=== PATIENT | male | born 1935 | race Two or more races ===

== ENCOUNTER 2019-07-22 00:16 | Inpatient (IN) | payer SELFPAY ==
[2019-07-22] VITALS (62 sets, daily range): BP systolic 83–150; BP diastolic 43–79
[~2019-07-22] VITALS: Ht 165.1 cm; Wt 68.0 kg
[2019-07-22] MEDS ORDERED: GENTAMICIN 80MG PREMIX 100 ML IV ONE (01:00)
[2019-07-22] MEDS ORDERED: SODIUM CHLORIDE 0.9% 1000ML BAG (SEPSIS BOLUS) IV ONE (01:00)
[2019-07-22] MEDS ORDERED: PIPERACILLIN/TAZ 3.375G PREMIX 50 ML IV ONE (01:00)
[2019-07-22] MEDS: VANCOMYCIN 1 G PREMIX 200 ML IV ONE ×2 (01:12→01:42)
[2019-07-22] MEDS ORDERED: ACETAMINOPHEN 325MG TABLET PO ONE (01:15)
[2019-07-22] MEDS ORDERED: IBUPROFEN 600MG TABLET PO ONE (01:15)
[2019-07-22 01:20] LABS: CHLORIDE 100 mEq/L (98-107)
[2019-07-22 01:23] LABS: HEMATOCRIT. 44.7 % (42.0-52.0); HEMOGLOBIN. 14.4 g/dL (14.0-18.0); MEAN CORPUSCULAR VOLUME 86.8 fL (80.0-94.0); MEAN PLATELET VOLUME 8.4 fl (7.4-10.4); PLATELET 308 x1000/uL (130-400); RED BLOOD CELL COUNT 5.15 mill/uL (4.7-6.1); RED CELL DISTRIBUTION WIDTH 17.3 % (11.6-14.6)
[2019-07-22 01:24] LABS: INR 1.1; PROTHROMBIN TIME 11.3 sec (9.6-11.0)
[2019-07-22 01:51] LABS: CLARITY URINE TURBID (CLEAR); COLOR URINE YELLOW (YELLOW); KETONES URINE NEGATIVE (NEGATIVE); LEUKOCYTE ESTERASE URINE 3+ (NEGATIVE); NITRITE URINE NEGATIVE (NEGATIVE); OCCULT BLOOD URINE 2+ (NEGATIVE); PH URINE 5.5 (4.5-8.0); PROTEIN URINE 1+ (NEGATIVE); SPECIFIC GRAVITY URINE 1.015 (1.005-1.030); UROBILINOGEN URINE 0.2 E.U./dL (0.2-1.0)
[2019-07-22] MEDS ORDERED: NOREPINEPHRINE 4 MG in DEXT 5% WATER 246 ML IV ONE (04:15)
[2019-07-22] MEDS ORDERED: NOREPINEPHRINE 4MG/250ML PMX 250 ML IV SCH (04:30)
[2019-07-22] MEDS ORDERED: SODIUM CHLORIDE 0.9% 500 ML IV ONE (04:59)
[2019-07-22 06:00] LABS: PLATELET ESTIMATE NORMAL
[2019-07-22] MEDS: SODIUM CHLORIDE 0.9% 1,000 ML IV SCH ×2 (08:47→20:12)
[2019-07-22] MEDS ORDERED: DOCUSATE SODIUM 100MG CAPSULE PO PRN (09:00)
[2019-07-22] MEDS ORDERED: IPRATROPIUM/ALBUTEROL 0.5-3(2.5)MG/3ML NEB NEB PRN (09:00)
[2019-07-22] MEDS ORDERED: ACETAMINOPHEN 325MG TABLET PO PRN (09:00)
[2019-07-22] MEDS ORDERED: LORAZEPAM 0.5MG TABLET PO PRN (09:00)
[2019-07-22] MEDS ORDERED: MORPHINE SULFATE 4 MG/ML CPJ (NOT FOR IM USE) IV PRN (09:00)
[2019-07-22] MEDS ORDERED: ZOLPIDEM TARTRATE 5MG TABLET PO PRN (09:00)
[2019-07-22] MEDS ORDERED: NOREPINEPHRINE 4 MG in DEXT 5% WATER 246 ML IV PRN (09:00)
[2019-07-22] MEDS ORDERED: TRAMADOL 50MG TABLET PO PRN (09:00)
[2019-07-22] MEDS ORDERED: NITROGLYCERIN 0.4MG TABLET SL SL PRN (09:00)
[2019-07-22] MEDS ORDERED: MAGNESIUM/ALUMINUM HYDROXIDE/SIMETHICONE 30ML UDC PO PRN (09:00)
[2019-07-22] MEDS ORDERED: ONDANSETRON HCL 4MG/2ML INJ IV PRN (09:00)
[2019-07-22] MEDS: ASCORBIC ACID 500 MG TABLET PO SCH ×2 (10:13→20:12)
[2019-07-22] MEDS: ZINC SULFATE 220 MG ( 50 ) CAPSULE PO SCH (10:13)
[2019-07-22] MEDS: ENOXAPARIN 30MG/0.3ML SYR SUBCUT SCH (10:14)
[2019-07-22] MEDS: FAMOTIDINE 20MG TABLET PO SCH (10:14)
[2019-07-22] MEDS: GUAIFENESIN 200MG/10ML SUGAR FREE UDC PO PRN (10:17)
[2019-07-22] MEDS: MEROPENEM 1,000 MG in SODIUM CHLORIDE 0.9% 100 ML IV SCH ×2 (11:59→22:12)
[2019-07-22] MEDS ORDERED: VANCOMYCIN 500 MG PREMIX 100 ML IV NR (12:00)
[2019-07-22 13:56] LABS: *AMPHETAMINES SCREEN URINE NEGATIVE (NEGATIVE); *BARBITURATES SCREEN URINE NEGATIVE (NEGATIVE); *BENZODIAZEPINES SCREEN URINE NEGATIVE (NEGATIVE); *COCAINE SCREEN URINE NEGATIVE (NEGATIVE); CANNABINOID URINE SCREEN NEGATIVE (NEGATIVE); METHADONE URINE SCREEN NEGATIVE (NEGATIVE)
[2019-07-22 13:57] LABS: OPIATES URINE SCREEN NEGATIVE (NEGATIVE); PHENCYCLIDINE URINE SCREEN NEGATIVE (NEGATIVE)
[2019-07-22 16:56] LABS: CREATINE KINASE MB FRACTION 8.8 ng/mL (0.5-3.6)
[2019-07-22] MEDS ORDERED: SODI88SP18 BOTHNSTRLS (19:23)
[2019-07-22] MEDS ORDERED: LOSA50TA41 PO (19:23)
[2019-07-22] MEDS ORDERED: FERR236T3 MT (19:23)
[2019-07-22] MEDS ORDERED: HYDR25TA MT (19:23)
[2019-07-22] MEDS: IPRATROPIUM/ALBUTEROL 0.5-3(2.5)MG/3ML NEB HHN SCH (20:22)
[2019-07-22 23:45] LABS: CREATINE KINASE MB FRACTION 6.9 ng/mL (0.5-3.6)
[2019-07-23] VITALS (40 sets, daily range): BP systolic 94–136; BP diastolic 49–81
[2019-07-23] MEDS: IPRATROPIUM/ALBUTEROL 0.5-3(2.5)MG/3ML NEB HHN SCH ×4 (02:18→21:32)
[2019-07-23] MEDS: SODIUM CHLORIDE 0.9% 1,000 ML IV SCH ×2 (03:58→16:45)
[2019-07-23 05:42] LABS: HEMATOCRIT. 33.6 % (42.0-52.0); HEMOGLOBIN. 10.8 g/dL (14.0-18.0); MEAN CORPUSCULAR HEMOGLOBIN 28.1 pg (28.0-32.0); MEAN CORPUSCULAR VOLUME 87.6 fL (80.0-94.0); MEAN PLATELET VOLUME 8.8 fl (7.4-10.4); PLATELET 200 x1000/uL (130-400); RED BLOOD CELL COUNT 3.83 mill/uL (4.7-6.1)
[2019-07-23 05:50] LABS: CHLORIDE 113 mEq/L (98-107)
[2019-07-23 06:00] LABS: PHOSPHORUS 2.3 mg/dL (2.5-4.9)
[2019-07-23 06:01] LABS: LDL CHOLESTEROL 79 mg/dL (5-100)
[2019-07-23 06:03] LABS: HDL CHOLESTEROL 37 mg/dL (40-59)
[2019-07-23] MEDS: ASCORBIC ACID 500 MG TABLET PO SCH ×2 (09:00→22:44)
[2019-07-23] MEDS: ZINC SULFATE 220 MG ( 50 ) CAPSULE PO SCH (09:00)
[2019-07-23] MEDS: ENOXAPARIN 30MG/0.3ML SYR SUBCUT SCH (09:00)
[2019-07-23] MEDS: FAMOTIDINE 20MG TABLET PO SCH (09:00)
[2019-07-23 09:37] LABS: PLATELET ESTIMATE NORMAL
[2019-07-23] MEDS ORDERED: MAGNESIUM 1 G PREMIX 100 ML IV NR ×2 (09:45→21:30)
[2019-07-23] MEDS ORDERED: VANCOMYCIN 1250MG in DEXTROSE 5% WATER 250ML IV SCH (10:00)
[2019-07-23 10:43] LABS: VITAMIN B12 SERUM 1778 pg/mL (211-911)
[2019-07-23 10:52] LABS: FOLIC ACID (FOLATE) SERUM > 20.00 ng/mL (>5.38)
[2019-07-23] MEDS ORDERED: POTASSIUM PHOS,M-BASIC-D-BASIC 15 MMOL in DEXT 5% WATER 245 ML IV ONE (11:00)
[2019-07-23] MEDS: MEROPENEM 1,000 MG in SODIUM CHLORIDE 0.9% 100 ML IV SCH (12:01)
[2019-07-23] MEDS ORDERED: PNEUMOCOCCAL VACCINE IM ONE (14:15)
[2019-07-23 16:43] LABS: TOTAL IRON BINDING CAPACITY 152 ug/dL (250-450)
[2019-07-24] VITALS: BP_SYST 123; BP_SYST 136; BP_DIAS 74; BP_DIAS 83
[2019-07-24] MEDS: SODIUM CHLORIDE 0.9% 1,000 ML IV SCH ×2 (00:47→10:47)
[2019-07-24] MEDS: MEROPENEM 1,000 MG in SODIUM CHLORIDE 0.9% 100 ML IV SCH ×3 (02:14→22:12)
[2019-07-24 04:00] VITALS: BP 136/83
[2019-07-24] MEDS: IPRATROPIUM/ALBUTEROL 0.5-3(2.5)MG/3ML NEB HHN SCH ×3 (07:33→22:23)
[2019-07-24 07:57] LABS: BASOPHILS % 0.6 % (0.0-2.0); EOSINOPHILS % 2.1 % (0.0-5.0); HEMATOCRIT. 31.6 % (42.0-52.0); HEMOGLOBIN. 10.6 g/dL (14.0-18.0); MEAN CORPUSCULAR HEMOGLOBIN 28.5 pg (28.0-32.0); MEAN CORPUSCULAR VOLUME 85.4 fL (80.0-94.0); MEAN PLATELET VOLUME 8.3 fl (7.4-10.4); MONOCYTES % 9.5 % (2.0-8.0); NEUTROPHILS % 76.8 % (40.0-76.0); PLATELET 204 x1000/uL (130-400)
[2019-07-24 08:00] VITALS: BP 136/80
[2019-07-24] MEDS: FAMOTIDINE 20MG TABLET PO SCH (08:44)
[2019-07-24] MEDS: ENOXAPARIN 40MG/0.4ML SYR SUBCUT SCH (08:44)
[2019-07-24] MEDS: ASCORBIC ACID 500 MG TABLET PO SCH ×2 (08:44→22:12)
[2019-07-24 08:47] LABS: CHLORIDE 110 mEq/L (98-107)
[2019-07-24 08:55] LABS: PHOSPHORUS 1.9 mg/dL (2.5-4.9)
[2019-07-24] MEDS ORDERED: VANCOMYCIN 1,250 MG in DEXT 5% WATER 250 ML IV SCH (09:00)
[2019-07-24] MEDS: ZINC SULFATE 220 MG ( 50 ) CAPSULE PO SCH (09:00)
[2019-07-24 12:00] VITALS: BP 135/87
[2019-07-24] MEDS ORDERED: VANCOMYCIN 1250MG in DEXTROSE 5% WATER 250ML IV SCH (14:00)
[2019-07-24] MEDS ORDERED: MORPHINE SULFATE 2 MG/ML CPJ (NOT FOR IM USE) IV PRN (15:31)
[2019-07-24 16:00] VITALS: BP 131/82
[2019-07-24 20:00] VITALS: BP 142/85
[2019-07-25] VITALS: BP 120/69
[2019-07-25] MEDS: IPRATROPIUM/ALBUTEROL 0.5-3(2.5)MG/3ML NEB HHN SCH ×3 (02:11→14:32)
[2019-07-25 04:00] VITALS: BP 129/71
[2019-07-25] MEDS: SODIUM CHLORIDE 0.9% 1,000 ML IV SCH ×2 (05:14→16:47)
[2019-07-25 08:00] VITALS: BP 140/82
[2019-07-25] MEDS: FAMOTIDINE 20MG TABLET PO SCH (08:25)
[2019-07-25] MEDS: ENOXAPARIN 40MG/0.4ML SYR SUBCUT SCH (08:25)
[2019-07-25] MEDS: ASCORBIC ACID 500 MG TABLET PO SCH ×2 (08:25→21:08)
[2019-07-25] MEDS: ZINC SULFATE 220 MG ( 50 ) CAPSULE PO SCH (08:26)
[2019-07-25] MEDS: MEROPENEM 1,000 MG in SODIUM CHLORIDE 0.9% 100 ML IV SCH (10:31)
[2019-07-25 12:00] VITALS: BP 120/80
[2019-07-25 16:00] VITALS: BP 134/76
[2019-07-25] MEDS: AMIKACIN 500MG in SODIUM CHLORIDE 0.9% 100ML IV SCH (18:25)
[2019-07-25 20:00] VITALS: BP 116/83
[2019-07-26] VITALS: BP 143/93
[2019-07-26] MEDS: SODIUM CHLORIDE 0.9% 1,000 ML IV SCH ×3 (03:49→23:02)
[2019-07-26 04:00] VITALS: BP 150/96
[2019-07-26] MEDS: CLONIDINE 0.1MG TABLET PO PRN (04:02)
[2019-07-26] MEDS: AMIKACIN 500MG in SODIUM CHLORIDE 0.9% 100ML IV SCH ×2 (05:35→18:19)
[2019-07-26 08:00] VITALS: BP 135/80
[2019-07-26] MEDS: ASCORBIC ACID 500 MG TABLET PO SCH ×2 (09:18→20:51)
[2019-07-26] MEDS: ZINC SULFATE 220 MG ( 50 ) CAPSULE PO SCH (09:18)
[2019-07-26] MEDS: FAMOTIDINE 20MG TABLET PO SCH (09:18)
[2019-07-26] MEDS: ENOXAPARIN 40MG/0.4ML SYR SUBCUT SCH (09:19)
[2019-07-26 12:00] VITALS: BP 130/80
[2019-07-26 16:00] VITALS: BP 127/78
[2019-07-26 20:00] VITALS: BP 156/90
[2019-07-26] MEDS: GUAIFENESIN 200MG/10ML SUGAR FREE UDC PO PRN (20:51)
[2019-07-26] MEDS: IPRATROPIUM/ALBUTEROL 0.5-3(2.5)MG/3ML NEB HHN SCH (22:00)
[2019-07-27] VITALS: BP 145/89
[2019-07-27 04:00] VITALS: BP 140/83
[2019-07-27] MEDS: AMIKACIN 500MG in SODIUM CHLORIDE 0.9% 100ML IV SCH (05:40)
[2019-07-27 07:31] LABS: BASOPHILS % 0.7 % (0.0-2.0); EOSINOPHILS % 2.3 % (0.0-5.0); HEMATOCRIT. 35.5 % (42.0-52.0); HEMOGLOBIN. 11.7 g/dL (14.0-18.0); LYMPHOCYTES % 15.2 % (20.0-50.0); MEAN CORPUSCULAR HEMOGLOBIN 28.5 pg (28.0-32.0); MEAN CORPUSCULAR VOLUME 86.3 fL (80.0-94.0); MEAN PLATELET VOLUME 8.2 fl (7.4-10.4); MONOCYTES % 8.5 % (2.0-8.0); NEUTROPHILS % 73.3 % (40.0-76.0); PLATELET 238 x1000/uL (130-400); RED BLOOD CELL COUNT 4.11 mill/uL (4.7-6.1); RED CELL DISTRIBUTION WIDTH 16.7 % (11.6-14.6)
[2019-07-27 08:00] VITALS: BP 155/92
[2019-07-27 08:07] LABS: CHLORIDE 106 mEq/L (98-107)
[2019-07-27] MEDS: SODIUM CHLORIDE 0.9% 1,000 ML IV SCH (08:55)
[2019-07-27] MEDS: IPRATROPIUM/ALBUTEROL 0.5-3(2.5)MG/3ML NEB HHN SCH ×3 (09:05→21:03)
[2019-07-27] MEDS: FAMOTIDINE 20MG TABLET PO SCH (09:52)
[2019-07-27] MEDS: ZINC SULFATE 220 MG ( 50 ) CAPSULE PO SCH (09:52)
[2019-07-27] MEDS: ASCORBIC ACID 500 MG TABLET PO SCH ×2 (09:52→20:19)
[2019-07-27] MEDS: ENOXAPARIN 40MG/0.4ML SYR SUBCUT SCH (09:55)
[2019-07-27 12:00] VITALS: BP 134/82
[2019-07-27 16:00] VITALS: BP 134/80
[2019-07-27 20:00] VITALS: BP 138/86
[2019-07-27] MEDS: AMIKACIN SULFATE 400 MG in SODIUM CHLORIDE 0.9% 100 ML IV SCH (23:09)
[2019-07-28] VITALS: BP 140/82
[2019-07-28 04:00] VITALS: BP 139/84
[2019-07-28] MEDS: SODIUM CHLORIDE 0.9% 1,000 ML IV SCH ×2 (04:50→15:29)
[2019-07-28 08:00] VITALS: BP 139/89
[2019-07-28] MEDS: ZINC SULFATE 220 MG ( 50 ) CAPSULE PO SCH (09:42)
[2019-07-28] MEDS: FAMOTIDINE 20MG TABLET PO SCH (09:42)
[2019-07-28] MEDS: ASCORBIC ACID 500 MG TABLET PO SCH ×2 (09:42→21:52)
[2019-07-28] MEDS: ENOXAPARIN 40MG/0.4ML SYR SUBCUT SCH (09:42)
[2019-07-28] MEDS: AMIKACIN SULFATE 400 MG in SODIUM CHLORIDE 0.9% 100 ML IV SCH ×2 (11:59→22:00)
[2019-07-28 12:00] VITALS: BP 129/86
[2019-07-28 16:00] VITALS: BP 133/81
[2019-07-28 20:00] VITALS: BP 142/83
[2019-07-28] MEDS: IPRATROPIUM/ALBUTEROL 0.5-3(2.5)MG/3ML NEB HHN SCH (20:28)
[2019-07-29] VITALS: BP 142/78
[2019-07-29] MEDS: SODIUM CHLORIDE 0.9% 1,000 ML IV SCH ×2 (00:47→18:36)
[2019-07-29 04:00] VITALS: BP 143/85
[2019-07-29 07:12] LABS: CHLORIDE 107 mEq/L (98-107)
[2019-07-29 07:30] VITALS: BP 136/85
[2019-07-29] MEDS: ZINC SULFATE 220 MG ( 50 ) CAPSULE PO SCH (08:55)
[2019-07-29] MEDS: FAMOTIDINE 20MG TABLET PO SCH (08:55)
[2019-07-29] MEDS: ASCORBIC ACID 500 MG TABLET PO SCH ×2 (08:55→22:11)
[2019-07-29] MEDS: ENOXAPARIN 40MG/0.4ML SYR SUBCUT SCH (08:55)
[2019-07-29] MEDS: IPRATROPIUM/ALBUTEROL 0.5-3(2.5)MG/3ML NEB HHN SCH ×3 (09:14→19:52)
[2019-07-29] MEDS: AMIKACIN SULFATE 400 MG in SODIUM CHLORIDE 0.9% 100 ML IV SCH ×2 (10:18→22:10)
[2019-07-29 12:30] VITALS: BP 121/70
[2019-07-29 17:30] VITALS: BP 131/76
[2019-07-29 20:00] VITALS: BP 141/81
[2019-07-30] VITALS: BP 149/79
[2019-07-30 04:00] VITALS: BP 137/80
[2019-07-30] MEDS: SODIUM CHLORIDE 0.9% 1,000 ML IV SCH (06:47)
[2019-07-30] MEDS: IPRATROPIUM/ALBUTEROL 0.5-3(2.5)MG/3ML NEB HHN SCH ×4 (07:28→21:34)
[2019-07-30 08:00] VITALS: BP 131/89
[2019-07-30] MEDS: ZINC SULFATE 220 MG ( 50 ) CAPSULE PO SCH (08:20)
[2019-07-30] MEDS: ASCORBIC ACID 500 MG TABLET PO SCH ×2 (08:20→21:12)
[2019-07-30] MEDS: FAMOTIDINE 20MG TABLET PO SCH (08:20)
[2019-07-30] MEDS: ENOXAPARIN 40MG/0.4ML SYR SUBCUT SCH (08:21)
[2019-07-30] MEDS: AMIKACIN SULFATE 400 MG in SODIUM CHLORIDE 0.9% 100 ML IV SCH (11:15)
[2019-07-30 12:00] VITALS: BP 129/73
[2019-07-30] MEDS: NYSTATIN POWDER 15GM TOP SCH (15:24)
[2019-07-30 16:00] VITALS: BP 111/65
[2019-07-30 20:00] VITALS: BP 123/68
[2019-07-31] VITALS: BP 134/68
[2019-07-31] MEDS: SODIUM CHLORIDE 0.9% 1,000 ML IV SCH ×2 (01:00→22:05)
[2019-07-31 04:00] VITALS: BP 134/68
[2019-07-31] MEDS: AMIKACIN SULFATE 400 MG in SODIUM CHLORIDE 0.9% 100 ML IV SCH ×3 (04:45→22:11)
[2019-07-31] MEDS: IPRATROPIUM/ALBUTEROL 0.5-3(2.5)MG/3ML NEB HHN SCH ×6 (07:50→19:50)
[2019-07-31 08:00] VITALS: BP 153/91
[2019-07-31] MEDS: NYSTATIN POWDER 15GM TOP SCH ×4 (09:00→17:40)
[2019-07-31] MEDS: ENOXAPARIN 40MG/0.4ML SYR SUBCUT SCH (09:01)
[2019-07-31] MEDS: ZINC SULFATE 220 MG ( 50 ) CAPSULE PO SCH (09:01)
[2019-07-31] MEDS: FAMOTIDINE 20MG TABLET PO SCH (09:02)
[2019-07-31] MEDS: ASCORBIC ACID 500 MG TABLET PO SCH ×2 (09:02→22:04)
[2019-07-31 12:00] VITALS: BP 132/84
[2019-07-31 16:00] VITALS: BP 124/64
[2019-07-31 20:00] VITALS: BP 128/66
[2019-08-01] VITALS: BP 132/68
[2019-08-01 04:00] VITALS: BP 142/80
[2019-08-01] MEDS: IPRATROPIUM/ALBUTEROL 0.5-3(2.5)MG/3ML NEB HHN SCH ×2 (07:52→14:39)
[2019-08-01 07:59] VITALS: BP 143/86
[2019-08-01] MEDS: SODIUM CHLORIDE 0.9% 1,000 ML IV SCH ×2 (08:22→17:14)
[2019-08-01] MEDS: ASCORBIC ACID 500 MG TABLET PO SCH ×2 (08:22→21:28)
[2019-08-01] MEDS: ZINC SULFATE 220 MG ( 50 ) CAPSULE PO SCH (08:22)
[2019-08-01] MEDS: ENOXAPARIN 40MG/0.4ML SYR SUBCUT SCH (08:23)
[2019-08-01] MEDS: NYSTATIN POWDER 15GM TOP SCH ×3 (08:23→17:14)
[2019-08-01] MEDS: FAMOTIDINE 20MG TABLET PO SCH (08:23)
[2019-08-01] MEDS: AMIKACIN SULFATE 400 MG in SODIUM CHLORIDE 0.9% 100 ML IV SCH ×2 (11:01→23:59)
[2019-08-01 12:13] VITALS: BP 138/83
[2019-08-01 17:04] VITALS: BP 130/80
[2019-08-01 20:00] VITALS: BP 157/90
[2019-08-02] VITALS: BP 160/84
[2019-08-02] MEDS: CLONIDINE 0.1MG TABLET PO PRN (00:14)
[2019-08-02 04:00] VITALS: BP 140/84
[2019-08-02 07:56] LABS: BASOPHILS % 0.6 % (0.0-2.0); EOSINOPHILS % 1.6 % (0.0-5.0); HEMATOCRIT. 32.8 % (42.0-52.0); HEMOGLOBIN. 10.8 g/dL (14.0-18.0); LYMPHOCYTES % 10.6 % (20.0-50.0); MEAN CORPUSCULAR VOLUME 85.4 fL (80.0-94.0); MEAN PLATELET VOLUME 7.9 fl (7.4-10.4); MONOCYTES % 4.5 % (2.0-8.0); NEUTROPHILS % 82.7 % (40.0-76.0); PLATELET 272 x1000/uL (130-400); RED BLOOD CELL COUNT 3.84 mill/uL (4.7-6.1); RED CELL DISTRIBUTION WIDTH 16.3 % (11.6-14.6)
[2019-08-02 08:00] VITALS: BP 142/89
[2019-08-02] MEDS: NYSTATIN POWDER 15GM TOP SCH ×2 (08:25→12:00)
[2019-08-02] MEDS: FAMOTIDINE 20MG TABLET PO SCH (08:26)
[2019-08-02] MEDS: ZINC SULFATE 220 MG ( 50 ) CAPSULE PO SCH (08:26)
[2019-08-02] MEDS: ASCORBIC ACID 500 MG TABLET PO SCH ×2 (08:26→21:25)
[2019-08-02] MEDS: ENOXAPARIN 40MG/0.4ML SYR SUBCUT SCH (08:26)
[2019-08-02 09:29] LABS: CHLORIDE 107 mEq/L (98-107)
[2019-08-02] MEDS: IPRATROPIUM/ALBUTEROL 0.5-3(2.5)MG/3ML NEB HHN SCH (10:00)
[2019-08-02] MEDS: AMIKACIN SULFATE 400 MG in SODIUM CHLORIDE 0.9% 100 ML IV SCH ×2 (11:56→23:47)
[2019-08-02 12:00] VITALS: BP 118/69
[2019-08-02] MEDS: SODIUM CHLORIDE 0.9% 1,000 ML IV SCH (15:33)
[2019-08-02 16:00] VITALS: BP 108/63
[2019-08-02 20:00] VITALS: BP 112/74
[2019-08-03] VITALS: BP 146/87
[2019-08-03] MEDS: SODIUM CHLORIDE 0.9% 1,000 ML IV SCH ×2 (03:04→23:02)
[2019-08-03 04:00] VITALS: BP 132/71
[2019-08-03 07:01] LABS: CHLORIDE 107 mEq/L (98-107)
[2019-08-03] MEDS: FAMOTIDINE 20MG TABLET PO SCH (08:36)
[2019-08-03] MEDS: ZINC SULFATE 220 MG ( 50 ) CAPSULE PO SCH (08:36)
[2019-08-03] MEDS: ASCORBIC ACID 500 MG TABLET PO SCH ×2 (08:36→23:02)
[2019-08-03] MEDS: ENOXAPARIN 40MG/0.4ML SYR SUBCUT SCH (09:25)
[2019-08-03] MEDS: AMIKACIN SULFATE 400 MG in SODIUM CHLORIDE 0.9% 100 ML IV SCH (16:50)
[2019-08-03 20:00] VITALS: BP 130/79
[2019-08-03] MEDS: IPRATROPIUM/ALBUTEROL 0.5-3(2.5)MG/3ML NEB HHN SCH (21:30)
[2019-08-04] VITALS: BP 121/66
[2019-08-04] MEDS: IPRATROPIUM/ALBUTEROL 0.5-3(2.5)MG/3ML NEB HHN SCH ×4 (02:22→20:01)
[2019-08-04] MEDS: AMIKACIN SULFATE 400 MG in SODIUM CHLORIDE 0.9% 100 ML IV SCH ×3 (03:22→23:31)
[2019-08-04 04:00] VITALS: BP 147/77
[2019-08-04 08:00] VITALS: BP 163/91
[2019-08-04] MEDS: ASCORBIC ACID 500 MG TABLET PO SCH ×2 (08:40→20:01)
[2019-08-04] MEDS: CLONIDINE 0.1MG TABLET PO PRN (08:40)
[2019-08-04] MEDS: FAMOTIDINE 20MG TABLET PO SCH ×2 (08:40→20:01)
[2019-08-04] MEDS: ENOXAPARIN 40MG/0.4ML SYR SUBCUT SCH (08:41)
[2019-08-04 12:00] VITALS: BP 122/68
[2019-08-04] MEDS: ZINC SULFATE 220 MG ( 50 ) CAPSULE PO SCH (13:20)
[2019-08-04 16:00] VITALS: BP 113/64
[2019-08-04] MEDS: SODIUM CHLORIDE 0.9% 1,000 ML IV SCH (17:22)
[2019-08-04 20:00] VITALS: BP 115/73
[2019-08-05] VITALS: BP 119/67
[2019-08-05 04:00] VITALS: BP 148/89
[2019-08-05] MEDS: SODIUM CHLORIDE 0.9% 1,000 ML IV SCH ×3 (04:55→21:45)
[2019-08-05 08:00] VITALS: BP 149/93
[2019-08-05] MEDS: FAMOTIDINE 20MG TABLET PO SCH ×2 (08:57→21:45)
[2019-08-05] MEDS: ASCORBIC ACID 500 MG TABLET PO SCH ×2 (08:57→21:45)
[2019-08-05] MEDS: ZINC SULFATE 220 MG ( 50 ) CAPSULE PO SCH (08:57)
[2019-08-05] MEDS: ENOXAPARIN 40MG/0.4ML SYR SUBCUT SCH (08:58)
[2019-08-05] MEDS: AMIKACIN SULFATE 400 MG in SODIUM CHLORIDE 0.9% 100 ML IV SCH (11:47)
[2019-08-05 12:00] VITALS: BP 141/80
[2019-08-05] MEDS: IPRATROPIUM/ALBUTEROL 0.5-3(2.5)MG/3ML NEB HHN SCH ×2 (15:30→20:27)
[2019-08-05 16:00] VITALS: BP 142/82
[2019-08-05 20:00] VITALS: BP 135/75
[2019-08-06] VITALS: BP 152/91
[2019-08-06] MEDS: AMIKACIN SULFATE 400 MG in SODIUM CHLORIDE 0.9% 100 ML IV SCH ×2 (00:26→11:02)
[2019-08-06 04:00] VITALS: BP 146/90
[2019-08-06 07:21] LABS: CHLORIDE 109 mEq/L (98-107)
[2019-08-06] MEDS: IPRATROPIUM/ALBUTEROL 0.5-3(2.5)MG/3ML NEB HHN SCH (07:54)
[2019-08-06 08:00] VITALS: BP 161/93
[2019-08-06] MEDS: ENOXAPARIN 40MG/0.4ML SYR SUBCUT SCH (08:26)
[2019-08-06] MEDS: ZINC SULFATE 220 MG ( 50 ) CAPSULE PO SCH (08:26)
[2019-08-06] MEDS: ASCORBIC ACID 500 MG TABLET PO SCH (08:26)
[2019-08-06] MEDS: SODIUM CHLORIDE 0.9% 1,000 ML IV SCH (08:52)
[2019-08-06] MEDS: FAMOTIDINE 20MG TABLET PO SCH (09:00)
[2019-08-06 11:42] VITALS: BP 161/93
[2019-08-06 12:00] VITALS: BP 138/90
== END 2019-08-06 14:54 | disposition home or self-care (01) | DRG 720 ==
LOC: ER 00:16 → MICUSO 03:30 → EDBEDREQ 03:32 → EDBEDREQTM 03:32 → EDBEDREQSVC 03:32 → ENRESERV 07:16 → 6EST 07-23 12:15
PROVIDERS: ADMIT Internal Medicine; ATTEND Internal Medicine
PROC: 02HV33Z Insertion of Infusion Device into Superior Vena Cava, Percutaneous Approach (ICD-10-PCS; principal; 2019-07-31)
PROC: B5181ZA Fluoroscopy of Superior Vena Cava using Low Osmolar Contrast, Guidance (ICD-10-PCS; 2019-07-31)
PROC: B548ZZA Ultrasonography of Superior Vena Cava, Guidance (ICD-10-PCS; 2019-07-31)
DX: A41.51 Sepsis due to Escherichia coli [E. coli] (principal); N17.0 Acute kidney failure with tubular necrosis; R65.21 Severe sepsis with septic shock; E44.0 Moderate protein-calorie malnutrition; G92 Toxic encephalopathy; E87.0 Hyperosmolality and hypernatremia; N39.0 Urinary tract infection, site not specified; B96.20 Unspecified Escherichia coli [E. coli] as the cause of diseases classified elsewhere; D64.9 Anemia, unspecified; G20 Parkinson's disease; I10 Essential (primary) hypertension; K56.41 Fecal impaction; R47.02 Dysphasia; Z16.12 Extended spectrum beta lactamase (ESBL) resistance; Z85.46 Personal history of malignant neoplasm of prostate; Z86.73 Personal history of transient ischemic attack (TIA), and cerebral infarction without residual deficits; Z93.1 Gastrostomy status; Z88.8 Allergy status to other drugs, medicaments and biological substances; Z68.25 Body mass index [BMI] 25.0-25.9, adult
CPT/HCPCS: 36415; 71045; 76937; 80048; 80053; 80061; 80150; 80305; 81003; 82270; 82550; 82553; 82607; 82746; 83036; 83540; 83550; 83605; 83735; 83880; 84100; 84145; 84484; 85025; 87077; 87186; 87493; 90732; 93005; 93306; 93970; 94640; 99291; C1725; J0278; J1580; J1650; J2185; J2543; J3370; J3475; J3490; J7030; J7040; J7050; J7060; J7620